=== PATIENT | male | born 1960 | race Caucasian/White ===

== ENCOUNTER 2020-01-26 15:51 | Outpatient (REF) | payer OTHER, SELFPAY | END 2020-01-26 15:52 | disposition home or self-care (01) | LOC: HO.LNP 15:51 | PROVIDERS: Visit Provider Internal Medicine | DX: Z20.828 Contact with and (suspected) exposure to other viral communicable diseases (principal) | CPT/HCPCS: U0003 ==

== ENCOUNTER 2021-07-25 14:46 | Outpatient (REF) | payer OTHER, SELFPAY ==
--- NOTE | ~2021-07-25 | XR_ITS ---
EXAMINATION: XR SINUSES CLINICAL INFORMATION: Right sinus headache. COMPARISON: No similar priors. TECHNIQUE: Galvan, Cruz, lateral, and SMV FINDINGS: No significant opacification of the paranasal sinuses, and no definite air-fluid level. No obvious displaced osseous fractures. No unexpected radiopaque foreign bodies. XR/XR sinus min 3V IMPRESSION: Normal examination. If complications from sinusitis are suspected, correlation with a paranasal sinus CT is recommended.
== END 2021-07-25 14:47 | disposition home or self-care (01) ==
LOC: HO.XRAY 14:46
PROVIDERS: PCP Internal Medicine; Visit Provider Internal Medicine
DX: R51.9 Headache, unspecified (principal)
CPT/HCPCS: 70220

== ENCOUNTER 2022-05-30 14:27 | Outpatient (REF) | payer OTHER, SELFPAY ==
--- NOTE | ~2022-05-30 | CT_ITS ---
EXAMINATION: CT ABDOMEN AND PELVIS WITHOUT CONTRAST CLINICAL INFORMATION: Kidney stone COMPARISON: 03/10/2015 TECHNIQUE: Multidetector volumetric imaging was performed from the superior aspect of the liver through the pubic symphysis. Sagittal and coronal reformatted images were obtained on the technologist's workstation. This CT examination was performed using dose optimization techniques as appropriate, variously including the following: *Automated exposure control *Adjustment of mA and/or kV according to patient size (this includes techniques or standardized protocols for targeted exams where dose is matched to indication/reason for exam; i.e. extremities or head) *Use of iterative reconstruction technique DLP: 641 mGy-cm FINDINGS: LUNG BASES: The visualized lung bases are unremarkable. LIVER, GALLBLADDER, AND BILIARY TREE: The liver is normal in size, shape, and attenuation. No focal hepatic lesion or biliary ductal dilatation is present. The gallbladder is unremarkable with no evidence of radiopaque gallstones, gallbladder wall thickening, or obvious pericholecystic inflammatory changes. PANCREAS: Unremarkable. SPLEEN: Unremarkable. ADRENAL GLANDS: Unremarkable. KIDNEYS AND URETERS: The kidneys are normal in size, shape, and attenuation. No hydronephrosis, hydroureter, or calculi seen. No perinephric stranding. BLADDER: Unremarkable. GASTROINTESTINAL TRACT: Colonic diverticulosis, no CT findings of diverticulitis. Appendix is within normal limits. ABDOMINAL WALL: Left fat-containing inguinal hernia. LYMPH NODES: Normal. VASCULAR: Unremarkable. PELVIC VISCERA: Mild prostatomegaly. OSSEOUS STRUCTURES: Unremarkable. CT/CT abdomen pelvis wo IV con IMPRESSION: No acute intra-abdominal abnormality. No nephrolithiasis or hydronephrosis.
== END 2022-05-30 14:28 | disposition home or self-care (01) ==
LOC: HO.CT 14:27
PROVIDERS: Visit Provider Internal Medicine
DX: N20.0 Calculus of kidney (principal)
CPT/HCPCS: 74176

== ENCOUNTER 2022-09-04 08:32 | Outpatient (REF) | payer OTHER, SELFPAY ==
[2022-09-04 09:28] LABS: MANUAL DIFF FLAG NO
[2022-09-04 10:27] LABS: Basophils Absolute Auto 0.1 X10*3/uL (0.0-0.2); Basophils Percent Auto 1.1 % (0-2); Eosinophils Absolute Auto 0.3 X10*3/uL (0.0-0.4); Eosinophils Percent Auto 4.6 % (0-4); Hematocrit 44.3 % (42.0-52.0); Hemoglobin 15.2 g/dl (14.0-18.0); Imm Gran Abs Auto 0.01 X10*3/uL (0.00-0.03); Imm Gran Pct Auto 0.2 % (0.0-0.4); Lymphocytes Absolute Auto 2.2 X10*3/uL (1.2-4.9); Mean Corpuscular HGB Conc 34.3 g/dl (31.0-36.0); Mean Corpuscular Hemoglobin 31.9 pg (27.0-33.0); Mean Corpuscular Volume 92.9 fL (80.0-98.0); Mean Platelet Volume 10.5 fL (9.4-12.4); Monocytes Absolute Auto 0.6 X10*3/uL (0.1-1.2); Neutrophils Absolute Auto 2.3 x10*3/uL (2.0-8.3); Neutrophils Percent Auto 43.1 % (45-73); Platelet Count 231 X10*3/uL (160-400); Red Blood Count 4.77 X10*6/uL (4.60-5.80); Red Cell Distribution Width 12.1 % (11.0-16.0); White Blood Count 5.4 X10*3/uL (4.8-10.8)
[2022-09-04 11:07] LABS: Alanine Aminotransferase 24 U/L (0-40); Albumin Level 4.2 g/dL (3.5-5.0); Alkaline Phosphatase 65 U/L (39-117); Anion Gap 14 (12-20); Aspartate Amino Transferase 21 U/L (5-37); Bilirubin Total 0.7 mg/dL (0.0-1.0); Blood Urea Nitrogen 17 mg/dL (9-16); Calcium 9.7 mg/dL (8.4-10.2); Carbon Dioxide 25 mmol/L (22-29); Chloride 109 mmol/L (96-108); Cholesterol 174 mg/dL; Estimated Glomerular Filt Rate > 60; Glucose Fasting 107 mg/dL (60-99); HDL Cholesterol 63 mg/dL; LDL Cholesterol Calculated 94 mg/dl; Potassium 4.6 mmol/L (3.3-5.1); Sodium 143 mmol/L (135-145); Total Protein 7.2 g/dL (6.5-8.0); Triglycerides 87 mg/dL
[2022-09-04 11:23] LABS: Prostate Specific Antigen 0.67 ng/mL (<0.05-4.0)
[2022-09-14 18:03] LABS: Testosterone, Free 42.3 pg/mL (35.0-155.0); Testosterone, Total 288 ng/dL (250-1100)
== END 2022-09-04 08:33 | disposition home or self-care (01) ==
LOC: HO.LAB 08:32
PROVIDERS: PCP Internal Medicine; Visit Provider Internal Medicine
DX: Z12.5 Encounter for screening for malignant neoplasm of prostate (principal); R53.83 Other fatigue; K21.9 Gastro-esophageal reflux disease without esophagitis; R35.1 Nocturia
CPT/HCPCS: 36415; 80053; 80061; 84153; 84402; 84403; 85025

== ENCOUNTER → 2022-10-02 10:44 | Outpatient (REF) | payer OTHER, SELFPAY ==
--- NOTE | 2022-10-02 10:47 | CA_ITS ---
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 The calculated ejection fraction is 67% by biplane method. - There is mildly increased left ventricular wall thickness. - No obvious valvular pathology seen on this study. - There is mild dilatation of the sinuses of Valsalva measuring 4.52 cm. Findings Left Ventricle Normal left ventricular cavity size. There is mildly increased left ventricular wall thickness. The left ventricular systolic function is normal. The calculated ejection fraction is 67% by biplane method. There is no evidence of regional wall motion abnormalities. Diastolic function is normal for age. Right Ventricle Normal right ventricular cavity size and systolic function. Atria Both atria are normal in size. Aortic Valve There is a normal trileaflet aortic valve. There is no aortic valve stenosis. There is no aortic valve regurgitation. Mitral Valve The mitral valve appears normal. There is no mitral valve regurgitation. There is no mitral valve stenosis. Pulmonic Valve The pulmonic valve is likely normal. Tricuspid Valve Normal tricuspid valve structure. There is trace tricuspid valve regurgitation. There is no evidence of pulmonary hypertension. Great Vessels The asc aorta is normal in size. There is mild dilatation of the sinuses of Valsalva measuring 4.52 cm. Venous The inferior vena cava is normal in size and collapses greater than 50% with inspiration. Pericardium/Pleural There is no evidence of pericardial effusion. Prior Study Comparison No significant change compared to prior study dated: 09/08/2008. Recommendations, Care & Conclusions No obvious valvular pathology seen on this study. Measurements 2D Linear Measurements IVSd: 1.17 0.6-0.9/0.6-1.0 cm LVIDd: 4.83 3.9-5.3/4.2-5.9 cm LVIDd Index: 2.27 2.4-3.2/2.2-3.1 cm/m2 LVIDs: 3.05 2.0-3.6 cm LVPWd: 1.12 0.7-1.1 cm LA Diam: 3.20 2.7-3.8/3.0-4.0 cm LAIDs Index: 1.50 1.5-2.3 cm/m2 LV Mass: 258.20 67-162/88-224 g LV Mass Index: 121.22 43-95/49-115 g/m2 LVOT Diam: 2.30 3.0+(-)1.3 cm 2D Systolic Function EF 4C: 66.60 >55% EF 2C: 67.90 >55% EF BiP: 66.70 >55% Mitral Valve MV Pk E: 0.69 MV PK A: 0.74 MV Decel Time: 303.00 E/A: 0.90 E'Lateral: 10.20 E'Medial: 6.74 E/E' Med: 10.20 E/E' Lat: 6.70 PHT: 89.00 MVA PHT: 2.47 Decel [place]: 2.27 Aortic Valve AoV Pk Roby: 1.36 AoV Mn Roby: 1.01 AoV VTI: 0.29 AoV Pk Grad: 7.00 Aov Mn Grad: 4.00 CADY Cont.VTI: 3.02 LVOT LVOT Pk Roby: 0.96 LVOT Mn Roby: 0.63 LVOT VTI: 0.21 LVOT Pk Grad: 4.00 LVOT Mn Grad: 2.00 LVOT Diam: 2.30 LVOT Area: 4.15 Diastolic Function MV Pk E: 0.69 MV Pk A: 0.74 E/A: 0.90 E'Medial: 6.74 E/E' Med: 10.20 E' Laterial: 10.20 E/E' Lat: 6.70 Right Ventricle TAPSE (mm): 24.80 TVS' Roby: 13.50 Tricuspid Valve TR Pk Roby: 1.95 TR Pk Grad: 15.00 RA Press: 8.00 RVSP: 23.00 Great Vessels Aorta Sinus of Valsalva: 4.52 2.0-3.[address] [place]: 3.06 1.7-3.4 cm Ao Asc: 3.50 2.1-3.4 cm Updated in Other Vendor System with Status of Final Rigoberto Schilling MD electronically signed on 10/02/2022 12:32:01 PM with status of Final
== END ==
LOC: HO.CARD 10:44
PROVIDERS: PCP Internal Medicine; Visit Provider Internal Medicine
DX: I44.4 Left anterior fascicular block (principal)
CPT/HCPCS: 93306

== ENCOUNTER → 2022-10-02 10:47 | Outpatient (BNV) | payer OTHER, SELFPAY | PROVIDERS: PCP Internal Medicine; Visit Provider Internal Medicine | DX: I44.4 Left anterior fascicular block (principal) | CPT/HCPCS: 93306 ==

== ENCOUNTER 2023-08-23 08:48 | Day surgery (SDC) | payer OTHER, SELFPAY ==
[2023-08-21 15:08] VITALS: BMI 30.1
--- NOTE | 2023-08-22 08:48 | HO.ANESPROP2 ---
Documented by User: Tracy Morrissey NP 08/22/23 08:48 HPI - Anesthesia Eval Consult details Narrative: 62yo M for Upper Endoscopy and Colonoscopy [facility] Past Medical History Medical History (Updated 08/21/23 @ 15:03 by Barbara Beltre RN) GERD (gastroesophageal reflux disease) Renal calculi DVT (deep venous thrombosis) Transient atrial fibrillation Elevated cholesterol Surgical History Surgical History H/O colonoscopy Hx of Achilles tendon repair Social History Social History (Updated 08/21/23 @ 15:05 by Barbara Beltre RN) Household Members: Spouse Patient Tobacco Use Status: Never used Tobacco Use of substances other than those prescribed or required for medical reasons: No Are you DNR?: No Advance Directives: No Advance Directives Information Provided: Yes Meds Allergies Allergy/AdvReac Type Severity Reaction Status Date / Time animal dander Allergy Unknown Unknown Verified 08/21/23 15:06 pollen extracts Allergy Unknown Unknown Verified 08/21/23 15:06 Home Medications ?Medication ?Instructions ?Recorded ?Confirmed ?Last Taken ?Type aspirin 81 mg tablet,delayed 81 mg PO DAILY 08/21/23 08/21/23 08/16/23 History release atorvastatin 10 mg tablet 10 mg PO DAILY 08/21/23 08/21/23 Unknown History multivitamin 1 tab PO DAILY 08/21/23 08/21/23 08/19/23 History Exam Height,Weight and Vital Signs: Height 5 ft 10 in Weight 95.254 kg Assessment and Plan Assessment Anesthesia Assessment: Chart Reviewed Documented by User: Gurwinder Dooley MD 08/23/23 10:23 [facility] Past Medical History Medical History (Updated 08/21/23 @ 15:03 by Barbara Beltre RN) GERD (gastroesophageal reflux disease) Renal calculi DVT (deep venous thrombosis) Transient atrial fibrillation Elevated cholesterol Family History Family history of problems with anesthesia: No Surgical History Surgical History H/O colonoscopy Hx of Achilles tendon repair History of Problems with Anesthesia: No Social History Social History (Updated 08/21/23 @ 15:05 by Barbara Beltre RN) Household Members: Spouse Patient Tobacco Use Status: Never used Tobacco Use of substances other than those prescribed or required for medical reasons: No Are you DNR?: No Advance Directives: No Advance Directives Information Provided: Yes Meds Allergies Allergy/AdvReac Type Severity Reaction Status Date / Time animal dander Allergy Unknown Unknown Verified 08/21/23 15:06 pollen extracts Allergy Unknown Unknown Verified 08/21/23 15:06 Home Medications ?Medication ?Instructions ?Recorded ?Confirmed ?Last Taken ?Type aspirin 81 mg tablet,delayed 81 mg PO DAILY 08/21/23 08/21/23 08/16/23 History release atorvastatin 10 mg tablet 10 mg PO DAILY 08/21/23 08/21/23 Unknown History multivitamin 1 tab PO DAILY 08/21/23 08/21/23 08/19/23 History Exam Airway Mallampati Class: II TM Dist: >3cm Neck ROM: Full Assessment and Plan Assessment Anesthesia Assessment: Anesthesia Plan Discussed Final Anesthetic Review Family History of Problems with Anesthesia: No History of Problems with Anesthesia: No NPO: Yes ASA Class: II Final Preanesthetic Review: No Changes in Pt Med Stat, Meds/Allgs Chart Reviewed, Consent Obtained/Reviewed and Anes Risks/Benef Reviewed Patient Risk: Low Procedure Risk: Low Anesthetic Plan Anesthetic Plan: TIVA Disposition: Standard PACU
[2023-08-23 09:16] VITALS: BMI 28.7
[2023-08-23 09:26] VITALS: BP 133/80; PULSE 47; RESP 16; TEMP 36.8; O2SAT 97
[2023-08-23] MEDS: Lactated Ringers 1,000 ML 100 ML IVCONT (09:48)
--- NOTE | 2023-08-23 10:58 | PC.NURSE ---
24hr update documented on paper
[2023-08-23 12:02] VITALS: BP 115/72; PULSE 70; RESP 16; TEMP 36.1; O2SAT 97
--- NOTE | 2023-08-23 12:06 | P.BOP_ITS ---
Brief Operative Note Date of Service: 08/23/23 Pre-op diagnosis: GERD, Screening Post-op diagnosis: other (Hiatal hernia, Colon polyp) Procedure: EGD with biopsies, Colonoscopy to the cecum with hot snare polypectomy Surgeon: Salvatore Naylor MD Anesthesia: MAC Was an Special Order Jeweler used for this Procedure?: No Estimated blood loss (mL): 2.0 Pathology: other (A. EG Junction at 40cm B. Ascending colon polyp) Condition: stable Disposition: PACU
[2023-08-23 12:17] VITALS: BP 130/80; PULSE 60; RESP 15; TEMP 36.2; O2SAT 99
--- NOTE | 2023-08-23 12:26 | OP_ITS ---
DATE OF SERVICE: 08/23/2023 SURGEON: Salvatore Naylor MD INDICATIONS: The patient presents for evaluation of gastroesophageal reflux and colorectal cancer screening. Full consent has been obtained from him for this, including risks of bleeding and perforation. PREOPERATIVE DIAGNOSIS: Gastroesophageal reflux and colorectal cancer screening. POSTOPERATIVE DIAGNOSIS: PROCEDURE PERFORMED: Esophagogastroduodenoscopy with biopsies and colonoscopy to the cecum with hot snare polypectomy. ESTIMATED BLOOD LOSS: COMPLICATIONS: ANESTHESIA: Monitored anesthesia care. ASSISTANTS: SPECIMENS: POSTOPERATIVE DIAGNOSES: Gastroesophageal reflux and colorectal cancer screening, hiatal hernia, rule out Gillette esophagus, colon polyp, diverticulosis, and internal hemorrhoids. DESCRIPTION OF PROCEDURE: The patient was placed in the left lateral decubitus position. The Olympus video gastroscope was passed in the posterior oropharynx and upper esophagus under direct vision. The scope was passed slowly into the distal esophagus. The gastroesophageal junction appeared at 40 cm. Extending from this for about 10 mm were short segments of possible Gillette mucosa. There was no esophagitis, ulceration, nor any lesions. The scope entered the stomach. There was a small hiatal hernia. The scope was advanced to the pylorus, and the duodenum was cannulated to the descending portion. The duodenum including the bulb appeared normal without mass or ulceration. The scope was withdrawn back in the stomach. The gastric antrum and body appeared normal with good peristalsis. The scope was retroflexed visualizing the proximal stomach carefully, which appeared normal, without any sign of mass or ulceration. The scope was straightened and withdrawn back to the esophagus. Multiple biopsies were obtained at and just above the EG junction at 40 cm. Proximal to this, the esophageal mucosa appeared normal. The scope was withdrawn from the patient. He was turned around for the colonoscopy. The digital rectal exam revealed no abnormalities. The Olympus video pediatric colonoscope was entered into the rectum and advanced to the cecum with the assistance of abdominal wall pressure. Once in the cecum, I did identify normal-appearing cecal pouch with appendiceal orifice and a normal-appearing ileocecal valve. The entire cecum and ileocecal valve appeared normal. The scope was slowly withdrawn assessing all mucosal surfaces carefully. Preparation was excellent. In the proximal ascending colon was an approximately 8 mm polyp on a short stalk, which was snared and removed with the hot snare polypectomy. The specimen was recovered by suction. Of note, the patient had to be turned into the supine position in order to reach the polyp for the polypectomy. I did not visualize any other polyps, colitis, nor angiodysplasia. There was a mild amount of sigmoid diverticulosis. In the rectum, scope was retroflexed visualizing internal hemorrhoids, but no other pathology. The rectal mucosa appeared normal. Scope was straightened and withdrawn from the patient. He tolerated the procedure well and was returned to the recovery area in stable condition. IMPRESSION: 1. Colon polyp. 2. Diverticulosis. 3. Internal hemorrhoids. 4. Hiatal hernia, rule out Gillette esophagus. PLAN: The results of the biopsy will be checked. If the colon polyp is a tubular adenoma, I would recommend a followup coloscopy in 5 years. If the upper endoscopy and biopsies do show Gillette esophagus, I would recommend a repeat upper endoscopy in 3 years as long as there is no dysplasia. He was advised not to use any aspirin and NSAIDs for 1 week. Of note, he is not having any particular symptoms of reflux and just takes occasional reflux treatment [id number], such as Tums. However, if he does have Gillette esophagus, I would be inclined to put him on some acid suppression with the least H2 reggie, if not a PPI. MD ALYX Interiano/MARIAH / [phone]
== END 2023-08-23 12:57 | disposition home or self-care (01) ==
PROVIDERS: PCP Internal Medicine; Visit Provider Internal Medicine
PROC: (CPT 45385; principal; 2023-08-23 10:30)
DX: Z12.11 Encounter for screening for malignant neoplasm of colon (principal); D12.2 Benign neoplasm of ascending colon; K57.30 Diverticulosis of large intestine without perforation or abscess without bleeding; K64.8 Other hemorrhoids; K21.9 Gastro-esophageal reflux disease without esophagitis; K44.9 Diaphragmatic hernia without obstruction or gangrene; I48.0 Paroxysmal atrial fibrillation; E78.5 Hyperlipidemia, unspecified; Z79.82 Long term (current) use of aspirin; I82.401 Acute embolism and thrombosis of unspecified deep veins of right lower extremity; Z98.890 Other specified postprocedural states; N20.0 Calculus of kidney; Z79.899 Other long term (current) drug therapy
CPT/HCPCS: 45385; 43239; 88305; 88313; J1596; J2704

== ENCOUNTER 2024-01-15 07:55 | Outpatient (AMB) | payer BC, SELFPAY ==
--- NOTE | 2024-01-15 07:57 | MHC.OFFVIS ---
Vital Signs 01/15/24 08:02 Height 5 ft 10 in Weight 203 lb BMI 29.1 BP 147/84 H Blood Pressure Location Rt brachial Position Sitting Pulse 68 Intake Visit Reasons: Left inguinal hernia Intake Note: Patient referred by pcp Dr. Juan for Left inguinal hernia. Present for 1yr. Patient c/o: left lower abdominal pain. Community Organization Director Required: No Community Organization Director Services: Community Organization Director Present Accompanied by: Self / Same As Patient Allergies animal dander Allergy (Unknown, Verified 01/15/24 08:01) Unknown pollen extracts Allergy (Unknown, Verified 01/15/24 08:01) Unknown HPI Comments Details: Patient presents for evaluation of a small occasionally symptomatic left inguinal hernia. He has noticed this roughly a year ago. Patient was quite active and does bowling and golfing and is occasionally having symptoms from this but otherwise doing well. He tied a diet. Has regular bowel habits. Chart was reviewed and patient evaluated [facility] Medical History GERD (gastroesophageal reflux disease) Renal calculi DVT (deep venous thrombosis) Transient atrial fibrillation Elevated cholesterol Surgical History H/O colonoscopy Hx of Achilles tendon repair Social History Household Members: Spouse Patient Tobacco Use Status: Never used Tobacco Physical Exam Vital Signs: Last Vital Signs Pulse 68 01/15/24 08:02 BP 147/84 H 01/15/24 08:02 BMI result Body Mass Index 29.1 GI Other: Patient was examined both supine and standing with Valsalva. Abdomen is soft and benign. Right groin negative. Genitalia within normal limits. Small left inguinal hernia. Assessment & Plan Assessment & Plan (1) Left inguinal hernia: Code(s): K40.90 - Unilateral inguinal hernia, without obstruction or gangrene, not specified as recurrent Category: Surgical Plan I discussed with the patient that therapeutic options are conservative therapy or repair. He has opted for the former. Because it is minimally symptomatic, and he is able to do his activities with no significant impairment, he wishes to be treated conservatively. Should this process increased in size become more symptomatic, patient has been instructed to call the office. Otherwise he will follow-up p.r.n.. All questions answered. Coding Level of Care Code New Pt Level 4 (73323) Diagnoses Left inguinal hernia K40.90
[2024-01-15 08:02] VITALS: BP 147/84; PULSE 68; BMI 29.1
== END 2024-01-15 08:10 | disposition home or self-care (01) ==
PROVIDERS: PCP Internal Medicine; Referring Provider Internal Medicine; Visit Provider Surgery
DX: K40.90 Unilateral inguinal hernia, without obstruction or gangrene, not specified as recurrent (principal)
CPT/HCPCS: 99204

== ENCOUNTER 2024-01-15 07:55 | Outpatient (REF) | payer BC, SELFPAY ==
[2024-01-15 08:39] LABS: MANUAL DIFF FLAG NO
[2024-01-15 08:59] LABS: Basophils Absolute Auto 0.1 X10*3/uL (0.0-0.2); Basophils Percent Auto 0.8 % (0-2); Eosinophils Absolute Auto 0.3 X10*3/uL (0.0-0.4); Eosinophils Percent Auto 4.4 % (0-4); Hematocrit 42.6 % (42.0-52.0); Hemoglobin 14.9 g/dl (14.0-18.0); Imm Gran Abs Auto 0.02 X10*3/uL (0.00-0.03); Imm Gran Pct Auto 0.3 % (0.0-0.4); Lymphocytes Absolute Auto 1.9 X10*3/uL (1.2-4.9); Lymphocytes Percent Auto 29.2 % (20-40); Mean Corpuscular Hemoglobin 32.1 pg (27.0-33.0); Mean Corpuscular Volume 91.8 fL (80.0-98.0); Mean Platelet Volume 9.9 fL (9.4-12.4); Monocytes Absolute Auto 0.6 X10*3/uL (0.1-1.2); Monocytes Percent Auto 9.4 % (2-11); Neutrophils Absolute Auto 3.7 x10*3/uL (2.0-8.3); Neutrophils Percent Auto 55.9 % (45-73); Platelet Count 185 X10*3/uL (160-400); Red Blood Count 4.64 X10*6/uL (4.60-5.80); Red Cell Distribution Width 12.4 % (11.0-16.0); White Blood Count 6.6 X10*3/uL (4.8-10.8)
[2024-01-15 09:40] LABS: Alanine Aminotransferase 28 U/L (0-40); Albumin Level 4.1 g/dL (3.5-5.0); Alkaline Phosphatase 73 U/L (39-117); Anion Gap 12 (12-20); Aspartate Amino Transferase 26 U/L (5-37); Bilirubin Total 0.6 mg/dL (0.0-1.0); Blood Urea Nitrogen 18 mg/dL (9-16); Calcium 9.2 mg/dL (8.4-10.2); Carbon Dioxide 29 mmol/L (22-29); Chloride 106 mmol/L (96-108); Cholesterol 172 mg/dL (<200); Estimated Glomerular Filt Rate > 60; Glucose Fasting 103 mg/dL (60-99); HDL Cholesterol 59 mg/dL (>40); LDL Cholesterol Calculated 100 mg/dL (<100); Potassium 4.5 mmol/L (3.3-5.1); Sodium 142 mmol/L (135-145); Total Protein 6.9 g/dL (6.5-8.0); Triglycerides 68 mg/dL (<150)
[2024-01-15 09:57] LABS: Prostate Specific Antigen 0.77 ng/mL (<0.05-4.0)
== END 2024-01-15 07:56 | disposition home or self-care (01) ==
LOC: HO.LAB 07:55
PROVIDERS: Absent Provider Internal Medicine; PCP Internal Medicine; Visit Provider Surgery
DX: E78.00 Pure hypercholesterolemia, unspecified (principal); Z12.5 Encounter for screening for malignant neoplasm of prostate; K21.9 Gastro-esophageal reflux disease without esophagitis
CPT/HCPCS: 36415; 80053; 80061; 84153; 85025

== ENCOUNTER 2024-05-18 11:12 | Outpatient (AMB) | payer BC, SELFPAY ==
--- NOTE | 2024-05-18 11:37 | A.OFFPC_ITS ---
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: No Accompanied by: Self / Same As Patient Allergies animal dander Allergy (Unknown, Verified 05/18/24 11:38) Unknown pollen extracts Allergy (Unknown, Verified 05/18/24 11:38) Unknown Tobacco use date assessed: 05/18/24 Dental Screening Dental Screen Date: 05/18/24 Did you have a dental visit in the last 12 months?: Yes Did you have a dental problem in the last 6 months where you did not have access to dental care?: No PFSH Medical History GERD (gastroesophageal reflux disease) Renal calculi DVT (deep venous thrombosis) Transient atrial fibrillation Elevated cholesterol Surgical History H/O colonoscopy Hx of Achilles tendon repair Family History (Updated 05/18/24 @ 11:46 by TAYE Julien) Mother Stroke Father High blood pressure Social History Household Members: Spouse Housing: House Patient Tobacco Use Status: Never used Tobacco service: No Current occupational status: retired 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 1. Little interest or pleasure in doing things: not at all 2. Feeling down, depressed, or hopeless: not at all 3. Trouble falling or staying asleep, or sleeping too much: not at all 4. Feeling tired or having little energy: not at all 5. Poor appetite or overeating: not at all 6. Feeling bad about yourself - or that you are a failure or have let yourself or your family down: not at all 7. Trouble concentrating on things, such as reading the newspaper or watching television: not at all 8. Moving or speaking so slowly that other people could have noticed. Or the opposite - being so fidgety or restless that you have been moving around a lot more than usual: not at all 9. Thoughts that you would be better off or of hurting yourself in some way: not at all Total score: 0 Source: Developed by Drs. Salvatore Lorenz, Alysa Lujan, Manny Olivares and colleagues, with an educational karol from [employer]. Thrive Questionnaire Date Thrive assessed: 05/18/24 I am a: Patient What is your living situation today?: I have a steady place to live Within the past 12 months, did the food you bought not last and you didn't have the money to get more?: Never true Within the past 12 months, did you worry whether your food would run out before you got money to buy more?: Never true Do you have trouble paying for medicines?: No Do you have trouble getting transportation to medical appointments?: No Do you have trouble paying your heating and electricity bill?: No Do you have trouble taking care of your child, family member or friend?: No Do you have trouble with day-to-day activities such as bathing, preparing meals, shopping, managing finances, etc.?: No Are you currently unemployed and looking for a job?: No Are you interested in more education?: No Please select the resources that you would like help with: None THRIVE Score: 0 AUDIT C Alcohol Use Questionnaire (AUDIT-C) 1. How often do you have a drink containing alcohol?: 2-3 times a week 2. How many drinks containing alcohol do you have on a typical day when you are drinking?: 1 or 2 3. How often do you have six or more drinks on one occasion?: Never Total Score: 3 SCOTTIE-7 AMB Questionnaire SCOTTIE-7 Date SCOTTIE - 7 assessed: 05/18/24 Feeling nervous, anxious, or on edge: 0 = Not at all Not being able to stop or control worryin = Not at all Worrying too much about different things: 0 = Not at all Trouble relaxin = Not at all Being so restless that it is hard to sit still: 0 = Not at all Becoming easily annoyed or irritable: 0 = Not at all Feeling afraid as if something awful might happen: 0 = Not at all Total SCOTTIE-7 score (0-4 normal; 5-9 mild; 10-14 moderate; 15-21 severe): 0 Source: Developed by Drs. Salvatore Lorenz, Alysa Lujan, Manny Olivares and colleagues, with an educational karol from [employer]. Physical exam (Primary Care) Vital Signs: Last Vital Signs Temp 97.7 F 05/18/24 11:38 Pulse 88 05/18/24 11:38 Resp 14 05/18/24 11:38 BP 150/90 H 05/18/24 11:38 Pulse Ox 96 05/18/24 11:38 Oxygen Delivery Method Room Air 05/18/24 11:38 BMI result Body Mass Index 29.7 Tobacco/Smoking Status: Tobacco use Status Tobacco use date assessed 05/18/24 05/18/24 11:46 Patient Tobacco Use Status Never used Tobacco 05/18/24 11:46 PHQ-9: PHQ-9 Score PHQ-9: Total score 0 05/18/24 11:46 Thrive Assessment: Date of Thrive Assessment Date Thrive assessed 05/18/24 05/18/24 11:46 Coding Level of Care Code New Pt Level 4 (72269) Complex EM visit Add On G2211 Diagnoses Hyperglycemia R73.9 Assessment & Plan Assessment & Plan (1) Hyperglycemia: Code(s): R73.9 - Hyperglycemia, unspecified Plan: History of Present Illness The patient is a 63-year-old male presenting with a need for a referral to [facility] for a benign lesion removal identified in a prior dermatological consultation in December. This was a part of an annual dermatological evaluation. The lesion necessitated referral documentation for procedure follow-through despite being benign. In addition to dermatological concerns, the patient has been on atorvastatin for an extended period to manage hyperlipidemia, with the patient's preference for a 90-day prescription disrupted due to recent insurance adjustments causing a temporary shift to 30- day prescriptions. Additionally, the patient is concerned with results from a recent bloodwork, indicating borderline hyperglycemia. The patient also mentioned a family history suggesting potential hereditary low testosterone levels, despite currently experiencing no symptoms associated with low testo sterone levels. 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 - Engages in golfing once the weather is warm. Review of Systems - Endocrine: Reports high blood sugar levels, inquiry into low testosterone levels. Physical Exam General: Cooperative and healthy appearing Nutritional Appearance: Well nourished Orientation/consciousness: Patient oriented x3 Limitations: No limitations Head: Normal to inspection General: Appearance normal, both eyes and all related structures Neck: Normal visual inspection Chest: Normal palpation of entire chest wall Respiratory: Normal respiratory effort Neurology: Patient oriented x3 Results - Labs: Borderline high blood sugar noted in recent bloodwork. Plan To address hyperlipidemia, atorvastatin will be prescribed with a 90-day supply, maintaining the patient's existing regimen for cholesterol management. A Hemoglobin A1C test will evaluate glucose tolerance following borderline results, aiding in refining management strategies in-line with potential prediabetes context. Testosterone levels, despite past low readings, do not presently require intervention since the patient is asymptomatic. Dermatological referral will be retroactively issued as required for historical procedure confirmation, considering the benign nature of the lesion. Patient was informed and verbally consented to the use of an ambient scribe for clinic note documentation during this visit. Discussion Notes I discussed the continuation of atorvastatin at a 90-day prescription interval after reviewing prior adjustment discrepancies due to insurance transitions. For the elevated glucose reading, we discussed plans for conducting a Hemoglobin A1C for clarification and future management oversight. I provided information on currently debated recommendations on testosterone levels, concluding that therapeutic interventions were unwarranted due to the lack of symptomatic presentation. The benign nature of the previous dermatological lesion was confirmed, and measures to finalize any necessary paperwork or referrals without further intervention were agreed upon. Patient Instructions - Continue atorvastatin as prescribed with a return to a 90-day supply. - Schedule and complete Hemoglobin A1C lab test as ordered. - No current action required for testosterone; monitor for symptoms. - Contact us for any new concerns or if symptoms develop. Orders: Orders Hemoglobin A1c Today R73.9 - Hyperglycemia, unspecified Referrals Dermatology Referral D22.9 - Melanocytic nevi, unspecified Medications: New atorvastatin 10 mg PO DAILY 90 tabs 1RF
[2024-05-18 11:38] VITALS: BP 150/90; PULSE 88; RESP 14; TEMP 36.5; O2SAT 96; BMI 29.7
== END 2024-05-18 12:52 | disposition home or self-care (01) ==
LOC: HO.HMCHD 11:12
PROVIDERS: PCP Internal Medicine; Visit Provider Internal Medicine
DX: R73.9 Hyperglycemia, unspecified (principal)

== ENCOUNTER → 2024-05-18 11:12 | Outpatient (BNVA) | payer BC, SELFPAY | PROVIDERS: PCP Internal Medicine; Visit Provider Internal Medicine ==

== ENCOUNTER 2024-11-13 08:35 | Outpatient (REF) | payer BC, SELFPAY ==
[2024-11-13 11:36] LABS: Hemoglobin A1C 144.6782 umol/L; Total Hemoglobin (HGBA1C) 4038.0015 umol/L
== END 2024-11-13 08:36 | disposition home or self-care (01) ==
LOC: HO.WFDLDS 08:35
PROVIDERS: Visit Provider Internal Medicine
DX: R73.9 Hyperglycemia, unspecified (principal)
CPT/HCPCS: 36415; 83036

== ENCOUNTER 2024-11-23 09:18 | Outpatient (AMB) | payer BC, SELFPAY ==
--- OUTSIDE RECORDS SUMMARY | 2023-08-23 06:30 | XMS_ITS ---
Author Organization [facility] Address [address] [place] [address] Care Team Providers Care Home Based Assistant Name Role Phone Yessica (RETIRED) Bryan WASHINGTON Primary Care Provide r Salvatore Stevens Unavailable [phone] REASON FOR VISIT screening,gerd Problems Problem Type SNOMED Code ICD Code Onset Dates Problem Status W/U Status Risk Notes Problem Diverticular disease of colon (403323064) Diverticulosis of large intestine without perforation or abscess without bleeding (K57.30) Active confirmed Problem Gastroesophageal reflux disease without esophagitis (837184665) Gastroesophageal reflux disease without esophagitis (K21.9) Active confirmed Encounters Encounter Location Date Provider Diagnosis [facility] Outpatient [address] [place] [phone] 08/23/2023 Salvatore Naylor Encounter for screen ing colonoscopy Z12.11 ; Colon polyps K63.5 ; Diverticulosis of large intestine without perforation or abscess without bleeding K57.30 ; Other hemorrhoids K64.8 ; Other specified disease of esophagus K22.89 ; Hiatal hernia K44.9 and Gastroesophageal reflux disease without esophagitis K21.9 Assessments Encounter Date Diagnosis (ICD Code) Assessment Notes Treatment Notes Treatment Clinical Notes Section Notes 08/23/2023 Encounter for screening colonoscopy (ICD-10 - Z12.11) 08/23/2023 Colon polyps (ICD-10 - K63.5) 08/23/2023 Diverticulosis of large intestine without perforation or abscess without bleeding (ICD-10 - K57.30) 08/23/2023 Other hemorrhoids (ICD-10 - K64.8) 08/23/2023 Other specified disease of esophagus (ICD-10 - K22.89) 08/23/2023 Hiatal hernia (ICD-10 - K44.9) 08/23/2023 Gastroesophageal reflux disease without esophagitis (ICD-10 - K21.9) Plan Of Treatment No Information Progress Notes * SHUBHAM HERNANDEZDOB:1960 (63 yo M)Acc No.[id number]:08/23/2023 EGD and COL/MAC Patient: SHUBHAM BERMUDEZ Provider: Brianna Naylor MD :1960 A ge:62 Y S ex:Male Date:08/23/2023 Address:[address] [place], [place] [id number] Pcp:Bryan Juan (RETIRED )MD Subjective: * Chief Complaints: * 1 . Screening,gerd. * Medical History: Objective: * Vitals: Assessment: * Assessment: 1. E ncounter for screening colonoscopy - Z12.11 (Primary) 2 . C olon polyps - K63.5 3 . D iverticulosis of large intestine without perforation or abscess without bleeding - K57.30 4 . O ther hemorrhoids - K64.8 5 . Other specified disease of esophagus - K22.89 6 . H iatal hernia - K44.9 ? 7 . G astroesophageal reflux disease without esophagitis - K21.9 Plan: * Treatment: * Procedure Codes: 4 5385 LESION REMOVAL COLONOSCOPY, Modifiers: 33 , 29811 UPPER GI ENDOSCOPY, BIOPSY * * The named appointment provid er may or may not be the originator of this progress note, and it is not deemed complete until electronically signed by the appointment provider. Sign off status: Pending * Provider: Brianna Naylor MD Date: 0 08/23/2023 Generated for Jose avery/Flavio/eTransmitting on: 0 11/23/2024 10:03 AM EDT
--- NOTE | 2024-11-23 08:54 | A.OFFPC_ITS ---
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 Required: No Accompanied by: Self / Same As Patient Allergies animal dander Allergy (Unknown, Verified 11/23/24 08:54) Unknown pollen extracts Allergy (Unknown, Verified 11/23/24 08:54) Unknown Medication List - Last Reconciled 11/23/24 by Jony Starkey MD atorvastatin 10 mg PO DAILY ketoconazole 2% appl topical BID multivitamin 1 tab PO DAILY Tobacco use date assessed: 11/23/24 Dental Screening Dental Screen Date: 11/23/24 Did you have a dental visit in the last 12 months?: Yes Did you have a dental problem in the last 6 months where you did not have access to dental care?: No Was dental information given to patient?: Patient has dentist HPI HPI Comments History of Present Illness Details The patient is a 63-year-old male presenting for a follow-up regarding hyperlipidemia management and assessment of a previously diagnosed ventral hernia. The patient has been taking atorvastatin 10 mg once daily at night to manage his high cholesterol levels, which had been assessed as borderline high in the past. He reports lifestyle modifications, including attempts at weight loss and healthier eating habits, over the last few years. Approximately one year ago, the patient experienced stomach pains, which prompted evaluation and diagnosis of a small ventral hernia. He consulted with Dr. Savage and a surgeon regarding this finding. After discussing the mild symptoms and lack of significant discomfort or interference with daily activities such as golf and bowling, the decision was made not to pursue surgical intervention. The patient recently underwent blood work to monitor his glucose levels, expressing concern about previously elevated sugar levels. The latest results indicated a value of 5.4, which is within the normal range, not classifying him as diabetic or prediabetic. Medical History: - Hyperlipidemia - Ventral hernia Surgical History: - No surgical interventions for ventral hernia. Medications: - Atorvastatin 10 mg daily at night for hyperlipidemia - Multivitamin - Topical creams for skin irritations (r ations) Family History: - Parents with history of smoking-relate d illnesses Diagnostic Results: - Labs: Recent blood work indicates gluc ose levels at 5.4, not classifying the patient as prediabetic or diabetic. 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 - Engages in regular physical activity: golf, bowling, bicycling - Never smoker due to parents' smoking h istory - Attempts weight control through [facility] ed diet and exercise [facility] Medical History (Updated 11/23/24 @ 09:40 by Jony Starkey MD) Annual physical exam Hyperlipidemia GERD (gastroesophageal reflux disease) Renal calculi DVT (deep venous thrombosis) Transient atrial fibrillation Elevated cholesterol Surgical History (Updated 11/23/24 @ 09:40 by Jony Starkey MD) History of esophagogastroduodenoscopy (EGD) (~08/23/23) H/O colonoscopy (~08/23/23) Hx of Achilles tendon repair Family History (Updated 05/18/24 @ 11:46 by TAYE Julien) Mother Stroke Father High blood pressure Social History Household Members: Spouse Housing: House Patient Tobacco Use Status: Never used Tobacco e-Cigarette/Vaping Use: Never Used service: No Current occupational status: retired 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 Salvatore Lorenz, Alysa Lujan, Manny Olivares and colleagues, with an educational karol from [employer]. Review of Systems Const Details: - Gastrointestinal: Denies significant pain from hernia, reports occasional mild awareness without discomfort. All systems reviewed & are unremarkable except as reviewed in HPI and above Physical exam (Primary Care) Vital Signs: Last Vital Signs Temp 98.1 F 11/23/24 09:26 Pulse 75 11/23/24 09:26 Resp 18 11/23/24 09:26 BP 130/76 11/23/24 09:26 Pulse Ox 94 11/23/24 09:26 Oxygen Delivery Method Room Air 11/23/24 09:26 BMI result Body Mass Index 30.3 Tobacco/Smoking Status: Tobacco use Status Tobacco use date assessed 11/23/24 11/23/24 08:55 Patient Tobacco Use Status Never used Tobacco 11/23/24 08:55 e-Cigarette/Vaping Use Never Used 11/23/24 09:29 Thrive Assessment: Date of Thrive Assessment Date Thrive assessed 05/18/24 11/23/24 08:55 Const Other: General: +Alert and oriented, Well nourished, No acute distress. Eye: Pupils are equal, round and reactive to light, Intact accommodation, Extraocular movements are intact, Normal conjunctiva, Vision unchanged. HENT: Normocephalic, Atraumatic, Tympanic membranes are clear, Normal hearing, Oral mucosa is moist, No pharyngeal erythema, Ear canals patent. Respiratory: Lungs CTA bilaterally, No wheeze, Respirations are non-labored. Cardiovascular: Regular rate, Regular rhythm, S1 auscultated, S2 auscultated, No murmur, Good pulses equal in all extremities, Normal peripheral perfusion, No edema. Gastrointestinal: Soft, Non-tender, Non-distended, Normal bowel sounds, No organomegaly, Small hernia noted, non-tender. Musculoskeletal: Normal range of motion, Normal strength, No tenderness, No swelling, No deformity, Normal gait. Integumentary: Warm, Dry, [place], Intact. Neurologic: Alert, Oriented, Normal sensory, Normal motor function, No focal defects, Cranial Nerves II-XII are grossly intact, Normal deep tendon reflexes. Psychiatric: Cooperative, Appropriate mood & affect, Normal judgment. Coding Level of Care Code Est Pt Level 3 (95293) Complex EM visit Add On G2211 Diagnoses Other hyperlipidemia E78.49 Hyperlipidemia type: other hyperlipidemia Left inguinal hernia K40.90 Assessment & Plan Assessment & Plan (1) Hyperlipidemia: Comment: - Continue atorvastatin 10 mg daily at night. - Discussed the risk vs. benefit of long-term statin use, emphasizing evidence of positive outcomes. - Plan to reassess lipid profile in six months prior to next visit. Code(s): E78.5 - Hyperlipidemia, unspecified Category: Medical Qualifiers: Hyperlipidemia type: other hyperlipidemia Qualified Code(s): E78.49 - Other hyperlipidemia (2) Left inguinal hernia: Comment: - Continue current conservative management as there is no significant discomfort. - Recommended being alert for signs of complications such as irreducibility or severe pain. - Encouraged continued physical activity with supportive measures as needed (e.g., wearing supportive briefs). Code(s): K40.90 - Unilateral inguinal hernia, without obstruction or gangrene, not specified as recurrent Category: Surgical Plan: Health maintenance: - Update on lifestyle changes regarding diet and exercise. - Encouragement to remain active through sports like golf and bowling to support overall health. Patient was informed and verbally consented to the use of an ambient scribe for clinic note documentation during this visit. Plan Today's visit focused on follow-up for hyperlipidemia and a ventral hernia. We discussed his current use of atorvastatin and recent blood test results reflecting an excellent glucose level. I highlighted the importance of atorvastatin in managing his cholesterol, detailing its life-saving benefits and potential side effects. He was informed of monitoring strategies and expected follow-up for blood tests in six months to track cholesterol and glucose levels. Regarding his ventral hernia, we reviewed the conservative management plan, emphasizing vigilance for signs of complications while encouraging continued physical activity. We concluded with personalized guidance on continued weight management and lifestyle choices. Orders: Orders Hemoglobin A1c 6 Months Z00.00 - Encounter for general adult medical examination without abnormal findings TSH reflex Free T4 6 Months Z00.00 - Encounter for general adult medical examination without abnormal findings Vitamin D 25-OH Total 6 Months Z00.00 - Encounter for general adult medical examination without abnormal findings Complete Blood Count Auto Diff 6 Months Z00.00 - Encounter for general adult medical examination without abnormal findings Comprehensive Met. Panel 6 Months Z00.00 - Encounter for general adult medical examination without abnormal findings Lipid Panel 6 Months Z00.00 - Encounter for general adult medical examination without abnormal findings Patient Instructions: - Continue taking atorvastatin 10 mg at night as prescribed. - Be proactive about monitoring for hernia symptoms or any new pain; seek immediate help for unreducible hernia. - Maintain active lifestyle with supportive clothing if needed. - Follow a balanced diet to support weight management. - Complete blood work a week before next follow-up appointment in six months.
[2024-11-23 09:26] VITALS: BP 130/76; PULSE 75; RESP 18; TEMP 36.7; O2SAT 94; BMI 30.3
--- OUTSIDE RECORDS SUMMARY | 2024-11-23 10:03 | XMS_ITS | Patient Health Record ---
Author Organization [facility] Address [address] [place] [address] Care Team Providers Care Spray Ii Painter Name Role Phone Yessica (RETIRED) Bryan W[place] Primary Care Provide Salvatore Russ Unavailable [phone] Allergies Allergen (clinical drug ingredient) Drug/Non Drug Allergy documented on EMR Reaction Allergy Type Onset Date Status pollen,cat dander (uncoded) Unknown Allergy Active Reason For Referral No Information Medications Medication SIG (Take, Route, Frequency, Duration) Notes Start Date End Date Status Allergy Active Aspir-81 81mg Active Atorvastatin Calcium 10mg Active Multi Vitamin/Minerals Active Problems Problem Type SNOMED Code ICD Code Onset Dates Problem Status W/U Status Risk Notes Problem Colon cancer screening (598842249) Colon cancer screening (Z12.11) Active confirmed Problem Diverticular disease of colon (641959820) Diverticulosis of large intestine without perforation or abscess without bleeding (K57.30) Active confirmed Problem Gastroesophageal reflux disease without esophagitis (815588261) Gastroesophageal reflux disease without esophagitis (K21.9) Active confirmed Problem Gastroesophageal reflux disease (disorder) (572212812) Chronic GERD (K21.9) Active confirmed Plan Of Treatment Pending Test Test Name Order Date Pathology 08/23/2023 Future Test Test Name Order Date COLONOSCOPY 02/19/2013 UPPER GI ENDOSCOPY 06/27/2023 COLONOSCOPY 06/27/2023 Insurance Providers Payer Name Payer Address Payer Phone Subscriber Number Group Number Insured Name Patient Relationship to Insured Coverage Start Date Coverage End Date [facility] [address] [facility] [phone] [id number] SHUBHAM HERNANDEZ Self - patient is the insured Medical (General) History Medical History History ICD Code Denies NH,DM,CVA,Lung disease,renal dise ase Hyperlipidemia Hx of transient A. fib in ap prox. [id number]--had a 24-Holter monitor-no subsequent problems DVT in LE after Achilles heel surgery Kidney stones Neg. screening colonoscopy in 03/2013 exc ept for a hyperplastic polyp GERD- Surgical History Surgery Date(Month/Year) Achilles tendon repair on the right
== END 2024-11-23 09:41 | disposition home or self-care (01) ==
PROVIDERS: PCP Student in an Organized Health Care Education/Training Program; Visit Provider Student in an Organized Health Care Education/Training Program
DX: E78.49 Other hyperlipidemia (principal); K40.90 Unilateral inguinal hernia, without obstruction or gangrene, not specified as recurrent